=== PATIENT | male | born 1975 | race Caucasian/White ===

== ENCOUNTER 2017-05-04 19:46 | Emergency (ER) | payer BC, OTHER ==
[~2017-05-04] VITALS: Ht 185.4 cm; Wt 127.0 kg
[2017-05-04 19:52] VITALS: TEMP 36.8; Ht 185.4 cm; Wt 127.0 kg
[2017-05-04] MEDS ORDERED: IBUPROFEN 600 MG TAB PO STA (20:06)
[2017-05-04] MEDS ORDERED: OXYCODONE HCL IR 5 MG TAB (IMMEDIATE RELEASE) PO STA (20:06)
--- NOTE | 2017-05-04 21:06 | DIAGNOSTIC IMAGING REPORT ---
L KNEE 1 OR 2 VIEWS ROUTINE CLINICAL HISTORY: Left knee pain status post trauma COMPARISON: None. DISCUSSION: No fractures or dislocations are visualized. IMPRESSION: No fractures identified. Electronically signed by: Narinder Amin M.D. 05/04/2017 9:05 PM Dictated Date/Time: 05/04/2017 9:05 PM
[2017-05-04 21:42] VITALS: BP 125/65; PULSE 78; O2SAT 97
--- NOTE | 2017-05-04 22:36 | EMERGENCY ROOM VISIT NOTE ---
History First contact with patient: 19:58 Chief Complaint: CALF PAIN Stated Complaint: L CALF MUSCLE ACHES,EXTREME PAIN History of Present Illness The patient is a 41 year old male who presents to the Emergency Room with complaints of left lateral leg pain with burning an initial numbness/tingling after his 65 pound dog ran into his leg. The patient reports that he was walking through a door frame, playing with his son when the dog ran into him. The injury happened approximately 3 hours ago. He reports that the burning and tingly sensation is somewhat improving. He denies any pain extending into the medial leg or knee region, or thigh. He rates his discomfort an 8 out of 10 with weightbearing. Review of Systems 10 system review was performed and was negative except for pertinent positives and negatives as indicated in history of present illness Past Medical/Surgical History Medical Problems: (1) No significant past medical history Surgical Problems: (1) History of wisdom tooth extraction Family History No significant family history Social History Smoking Status: Never Smoker Alcohol Use: occasionally Marital Status: Housing Status: lives with family Occupation Status: employed Physical Exam Vital Signs Date Time Temp Pulse Resp B/P (MAP) Pulse Ox O2 Delivery O2 Flow Rate FiO2 05/04/17 21:42 78 16 125/65 97 05/04/17 19:52 36.8 94 18 128/82 94 Room Air Physical Exam CONSTITUTIONAL: Healthy and well nourished. Alert and oriented X 3 with positive affect. Patient does not appear in any acute distress on initial exam. HEENT: Normocephalic, atraumatic. Pupils equal, round and reactive. NECK: Full active range of motion without discomfort. MUSCULOSKELETAL: Examination shows focal tenderness to palpation of the proximal fibula and fibular head region. He has no focal tenderness to palpation of the medial or lateral joint line, hamstrings, gastrocnemius, Achilles tendon or ankle region. No joint effusion noted. Flexion and extension of the knee does not worsen his discomfort. Collateral ligaments are intact, with a negative anterior/posterior drawer test. Pedal pulses are intact. INTEGUMENTARY: No rash or other significant dermatologic conditions noted. NEUROLOGIC: Left lower extremity is sensory intact. Medical Decision & Procedures ER Provider Diagnostic Interpretation: My interpretation of left knee x-rays does not show any acute fractures or dislocations. Radiologist report is as follows: L KNEE 1 OR 2 VIEWS ROUTINE CLINICAL HISTORY: Left knee pain status post trauma COMPARISON: None. DISCUSSION: No fractures or dislocations are visualized. IMPRESSION: No fractures identified. Medications Administered Medications (Trade) Dose Ordered Sig/Lori Route Start Time Stop Time Status Last Admin Dose Admin Oxycodone HCl (Roxicodone Immediate Rel Tab) 5 mg NOW STAT PO 05/04/17 20:06 05/04/17 20:07 DC 05/04/17 20:12 5 MG Ibuprofen (Motrin Tab) 600 mg NOW STAT PO 05/04/17 20:06 05/04/17 20:07 DC 05/04/17 20:11 600 MG ED Course Patient history and physical exam were performed. Nurse's notes were reviewed. Vital signs were reviewed and were normal. The patient was administered ibuprofen and OxyIR 5 mg for pain. X-rays of the left knee were normal. The patient reports that his symptoms have progressively improved since the time of injury. He was able to ambulate without antalgic gait. The patient was encouraged to intermittently apply ice to the region. Ibuprofen and Tylenol in alternating fashion as needed for additional pain relief. The patient was encouraged to follow-up with orthopedics if symptoms are not significantly improving within the next week. Patient was happy with plan of care, voiced understanding of all discharge instructions, and denied any significant pain at the conclusion of my exam. Medical Decision Medication Reconcilliation Current Medication List: was personally reviewed by me Blood Pressure Screening Patient's blood pressure: Normal blood pressure Impression Primary Impression: Contusion of left leg Departure Information Referrals Tomasz Camarillo MD (PCP) Patient Instructions My [facility] Problem Qualifiers Primary Impression: Contusion of left leg Encounter type: initial encounter Qualified Codes: S80.12XA - Contusion of left lower leg, initial encounter
== END 2017-05-04 21:43 | disposition home or self-care (01) ==
LOC: C.EDB 19:48 → C.EDD 21:43
DX: S80.12XA Contusion of left lower leg, initial encounter (principal); W54.1XXA Struck by dog, initial encounter